=== PATIENT | male | born 1930 | race Caucasian/White ===

== ENCOUNTER → 2016-07-13 | Outpatient (CLI) | payer MEDICARE ==
[2014-04-02 13:00] VITALS: BP 124/60
[~2016-07-13] MED LIST: ASCO500T PO; CHOL2000 PO; GLUC1TAB71 PO; IOHEXOL 180 MG/ML 10 ML VIAL. ONE; OMEG500C3 PO; methylPREDNISolone ACETATE 40 MG/ML VIAL. ONE; methylPREDNISolone ACETATE 80 MG/ML VIAL. ONE
--- NOTE | 2016-07-14 01:40 | PAIN ---
DATE OF SERVICE: 07/13/2016 DIAGNOSES: Lumbar radiculopathy with lumbar spinal stenosis and lumbar degenerative disk disease. HISTORY OF PRESENT ILLNESS: The patient is an 85-year-old male who returns for followup status post lumbar epidural steroid injection x 2. The patient reports approximately 70% improvement after the last injection, rates his pain as 3 on a scale of 10 today, describes it as aching in the low back and right leg, mostly in the lateral and anterior aspect of the thigh, anterior medial thigh to the lower leg as well. The patient reports no new motor or sensory deficits, but is encouraged by his progress after his last injection as the first injection has only approximately 50% improvement as ____ much more improved. The patient reports no new motor or sensory deficits, no new bowel or bladder incontinence or other complaints. The patient's old chart was reviewed as his current medication regimen and updated. Current review of systems updated today as well. PHYSICAL EXAMINATION: VITAL SIGNS: Today, the patient's blood pressure is 144/77, pulse 81, respirations 18, temperature 98.0 degrees Fahrenheit, height 6 feet 1 inch, weight is 210 pounds. GENERAL: The patient is awake, alert, oriented, appropriate, very pleasant demeanor. HEENT: Shows normocephalic, atraumatic. Extraocular movements are intact, symmetrical. Oral cavity shows mucous membranes are moist and pink. NECK: Shows anterior throat supple. CHEST: Shows breath sounds clear to auscultation bilaterally. HEART: Shows S1 and S2 clear. ABDOMEN: Soft, nontender, nondistended. No palpable organomegaly is noted. No rebound or guarding demonstrated. BACK: Shows spine grossly in midline. Lumbar paraspinous muscle shows some neag-ue-vqfrhykm tenderness, but only diffusely in the low lumbar distribution. Muscle girth is normal and symmetrical. No tenderness over the spinous processes. No tenderness over the sacrum or sacroiliac regions. EXTREMITIES: Lower extremities showed deep tendon reflexes at 1+ in the patellar tendons. Motor exam is strong with 5/5 dorsiflexion, extension, quadriceps and hamstring flexion and equal. Options were discussed with the patient. We will proceed with a third lumbar epidural steroid injection today with fluoroscopic guidance. Risks were again discussed including, but not limited to bleeding, infection, possibility of epidural hematoma, subsequent neurological compromise, dural puncture, headaches, spinal cord and/or nerve damage, side effects of steroid medication and poor results regarding pain control. The patient understands and wishes to proceed. The patient will return to clinic in approximately 2 weeks for followup. He was counseled as to return appointment, activity level and side effects to be aware of. DIAGNOSES: Lumbar radiculopathy with lumbar degenerative disk disease, lumbar spinal stenosis. PROCEDURE: Lumbar epidural steroid injection, translaminar approach at the L4-L5 level using C-arm fluoroscopic guidance under sterile prep and drape using local anesthesia. Medications injected are 120 mg of Depo-Medrol plus 10 mL of preservative-free normal saline and 2 mL of Isovue for contrast. The patient's condition at discharge is stable. The patient tolerated the procedure well, had no complications. URSULA LAWRENCE MD DR: TAMRA/jeanna JOB#: [id number] / [id number]
== END | disposition home or self-care (01) ==
LOC: PNCL 08:58
PROVIDERS: ATTEND Anesthesiology
DX: M51.16 Intervertebral disc disorders with radiculopathy, lumbar region (principal); M48.06 Spinal stenosis, lumbar region
CPT/HCPCS: 62323; J1030; J1040

== ENCOUNTER → 2016-08-25 | Outpatient (CLI) | payer MEDICARE ==
[2014-04-02 13:00] VITALS: BP 124/60
[~2016-08-25] MED LIST changes: -IOHEXOL 180 MG/ML 10 ML VIAL. ONE; +NAPR220T70 PO; +RANI150T2 PO; -methylPREDNISolone ACETATE 40 MG/ML VIAL. ONE; -methylPREDNISolone ACETATE 80 MG/ML VIAL. ONE
[2016-08-25 14:56] LABS: BASO % 1 % (0-3); EOS % 7 % (0-3); HEMATOCRIT 37.1 % (39.0-53.0); HEMOGLOBIN 12.5 g/dL (13.0-17.5); LYMPH # 2.1 x10^3/uL (1.0-4.8); LYMPH % 29 % (24-48); MEAN CORPUSCULAR HEMOGLOBIN 32 pg (25-35); MEAN CORPUSCULAR HGB CONC 34 g/dL (31-37); MEAN CORPUSCULAR VOLUME 94 fL (79-100); MONO % 8 % (0-9); NEUT % 56 % (31-73); PLATELET COUNT 165 x10^3/uL (140-400); RED BLOOD COUNT 3.96 x10^6/uL (4.30-5.70); RED CELL DISTRIBUTION WIDTH 13.7 % (11.5-14.5); WHITE BLOOD COUNT 7.3 x10^3/uL (4.0-11.0)
[2016-08-25 15:44] LABS: ALBUMIN 3.3 g/dL (3.4-5.0); CALCIUM 9.2 mg/dL (8.5-10.1); GFR 70.8; POTASSIUM 4.2 mmol/L (3.5-5.1); TOTAL BILIRUBIN 0.5 mg/dL (0.2-1.0); TOTAL PROTEIN 6.7 g/dL (6.4-8.2)
== END | disposition home or self-care (01) ==
LOC: SURGPAT 13:32
PROVIDERS: ATTEND Neurological Surgery
DX: M48.06 Spinal stenosis, lumbar region (principal); M71.20 Synovial cyst of popliteal space [Baker], unspecified knee
CPT/HCPCS: 36415; 80053; 85027; 87641

== ENCOUNTER 2016-08-28 07:13 | Day surgery (SDC) | payer MEDICARE ==
--- NOTE | 2016-08-26 22:42 | PREOP HP ---
DATE OF SERVICE: 08/28/2016 Henry Velasquez RN dictating for Dr. Alexx Garcia. HISTORY OF PRESENT ILLNESS: The patient is a pleasant 86-year-old man, who is having difficulty with right lateral thigh and leg pain. The problem started about 2 years ago and began to become more severe over the last 6 months. He rates his pain as a 6-7/10 now. Walking, turning, or twisting makes the problem worse. He gets relief by sitting or lying down. He has had epidural steroid injections, which he said helped him. Chiropractic treatment was no help. He feels that there may be some weakness in his right foot. PAST MEDICAL HISTORY: Cancer. PAST SURGICAL HISTORY: Tonsil surgery in 1969, hemorrhoidectomy in 1989, and wrist surgery x 2 in 1999. FAMILY HISTORY: Noncontributory. SOCIAL HISTORY: Retired. . Former smoker. Drinks alcohol 1-2 times per week. ALLERGIES: No known drug allergies. CURRENT MEDICATIONS: Vitamin C, vitamin D, fish oil, Aleve, Osteo Bi-Flex Joint Shield, and ranitidine. REVIEW OF SYSTEMS: A 12-point review of systems was obtained and is noncontributory except that mentioned above. PHYSICAL EXAMINATION: NEUROSURGERY EXAMINATION: GENERAL APPEARANCE: Alert, pleasant, in no acute distress. HEAD: Normocephalic and atraumatic. SKIN: Warm and dry. MUSCULOSKELETAL: Lumbar paraspinal muscle bulk is normal, restricted range of motion of lumbar spine, cufd-fs-[id number] tenderness of lower lumbar spine with palpation, normal range of motion of the upper extremities bilaterally. EXTREMITIES: No clubbing, cyanosis, or edema. NEUROLOGIC: Alert and oriented x 3, normal recent and remote memory, strength 5/5 in bilateral lower extremities except for a 4/5 strength in right foot dorsiflexion and right EHL, sensory was intact to light touch in bilateral lower extremities, reflexes were present and symmetric in the lower extremities bilaterally, negative straight leg raising bilaterally, normal gait. IMAGING: I reviewed a lumbar MRI scan. On that study, there is a large synovial cyst present and hypertrophic facet at L4-L5 on the right. This results in severe spinal stenosis at that level. There is also grade 1 anterolisthesis at this level. ASSESSMENT/PLAN: I believe the stenosis and synovial cyst are the primary problem which resulted in the patient's radicular pain. My recommendation is that he undergo lumbar microsurgery to remove this. He does have dorsiflexion weakness on the right associated with this. I discussed with him the surgery and risks. He understands. He would like to go ahead. We will make the arrangements. ALEXX GARCIA MD DR: JANINA/jeanna JOB#: [id number] / [id number] XIN
[~2016-08-28] VITALS: Ht 177.8 cm; Wt 98.9 kg
[~2016-08-28 07:13] MED LIST changes: +BACITRACIN 50,000 UNIT in IV NORMAL SALINE 1000ML BAG 1,000 ML IRR ONE; +BUPIVAC MPF-EPI 0.5%-1:200000 30 ML VIAL. ONE; +CEFAZOLIN 2GM PREMIX 50 ML IV PRN; +FENTANYL PF 100 MCG/2 ML VIAL. IV PRN; +GELATIN SPONGE SIZE 100. ONE; +HYDROMORPHONE 2 MG/ML VIAL. IV PRN; +IV RINGERS,LACTATED 1000ML 1,000 ML IV SCH; +KETOROLAC 60 MG/2 ML SYRINGE FOR OR. ONE; +LIDOCAINE 1% 1 ML SYRINGE. ID PRN; +MORPHINE SULFATE 2 MG/ML DISP.SYRIN. IV PRN; +ONDANSETRON PF 4 MG/2 ML VIAL. IV PRN; +PROCHLORPERAZINE 10 MG/2 ML VIAL. IV PRN; +THROMBIN 20,000 UNIT SPRAY.SYRN KIT TP ONE
[2016-08-28] MEDS ORDERED: ONDANSETRON PF 4 MG/2 ML VIAL. ONE (08:31)
[2016-08-28] MEDS ORDERED: FENTANYL PF 250 MCG/5 ML VIAL. ONE (08:31)
[2016-08-28] MEDS ORDERED: DESFLURANE > 120 MINUTES IH ONE (08:31)
[2016-08-28] MEDS ORDERED: PROPOFOL 50 ML IV ONE (08:31)
[2016-08-28] MEDS ORDERED: PROPOFOL 20 ML IV ONE (08:31)
[2016-08-28] MEDS ORDERED: LIDOCAINE 2% 100 MG/5 ML DISP.SYRIN. ONE (08:31)
[2016-08-28] MEDS ORDERED: REMIFENTANIL 2 MG VIAL. IV ONE (08:31)
[2016-08-28] MEDS ORDERED: DEXAMETHASONE SOD PHOS 20 MG/5 ML VIAL. ONE (08:31)
[2016-08-28] MEDS ORDERED: ROCURONIUM 50 MG/5 ML VIAL. ONE (08:31)
[2016-08-28] MEDS ORDERED: MIDAZOLAM HCL 2 MG/2 ML VIAL. ONE (08:31)
[2016-08-28] MEDS ORDERED: 0.9 % SODIUM CHLORIDE 50 ML VIAL. IJ ONE (08:32)
[2016-08-28] MEDS ORDERED: MINERAL OIL/PETROLATUM,WHITE OPHTH OINT 3.5GM TUBE. ONE (08:36)
[2016-08-28] MEDS ORDERED: PHENYLEPHRINE 10 MG/ML VIAL. ONE (09:14)
[2016-08-28] MEDS ORDERED: CEFAZOLIN PREMIX 2 GM/50 ML BAG. IV ONE (09:24)
[2016-08-28] MEDS ORDERED: GLYCOPYRROLATE 1 MG/5 ML VIAL. ONE (11:15)
[2016-08-28] MEDS ORDERED: NEOSTIGMINE METHYLSULFATE 5 MG/5 ML SYRINGE. ONE (11:16)
[2016-08-28] MEDS ORDERED: POTASSIUM CL 20MEQ D5-0.45NACL 1,000 ML IV SCH (12:38)
[2016-08-28] MEDS ORDERED: MAG HYDROX/ALUMINUM HYD/SIMETH 30 ML ORAL.SUSP PO PRN (12:45)
[2016-08-28] MEDS ORDERED: DIPHENHYDRAMINE HCL 25 MG CAPSULE PO PRN (12:45)
[2016-08-28] MEDS ORDERED: FENTANYL PF 100 MCG/2 ML VIAL. IV PRN ×2 (12:45)
[2016-08-28] MEDS ORDERED: ONDANSETRON PF 4 MG/2 ML VIAL. IV PRN (12:45)
[2016-08-28] MEDS ORDERED: 0.9 % SODIUM CHLORIDE 10 ML DISP.SYRIN. IV PRN (12:45)
[2016-08-28] MEDS ORDERED: MAGNESIUM HYDROXIDE 2,400 MG/30 ML ORAL.SUSP. PO PRN (12:45)
[2016-08-28] MEDS ORDERED: ACETAMINOPHEN 325 MG TABLET. PO PRN (12:45)
[2016-08-28] MEDS ORDERED: HYDROCODONE/APAP 7.5/325MG TABLET. PO PRN ×3 (12:45→13:45)
[2016-08-28] MEDS ORDERED: DIPHENHYDRAMINE 50 MG/ML VIAL IV PRN (12:45)
[2016-08-28] MEDS ORDERED: CALCIUM CARBONATE 500 MG TAB.CHEW PO PRN (12:45)
[2016-08-28 13:03] VITALS: BP 149/66
--- NOTE | 2016-08-28 14:01 | DISCH ---
DISCHARGE INSTRUCTIONS Condition on Discharge Condition on Discharge: Stable Activity After Discharge Activity Instructions for Disc: Activity as tolerated Bathing Instructions: Shower-keep dressing dry (no direct water pressure. no soaking. ), No Tub Bath until see DrMaddi Lifting Instructions after Dis: No heavy lifting, No pulling or pushing, Do not lift >10 pounds Driving Instructions after Dis: Do not drive (for 1 week) Weight Bearing Status after Di: No restrictions Diet after Discharge Additional Diet Restrictions: resume home diet Wound Incision Care Other wound/incision instructi: May remove dressing in 48 hours if drainage has stopped. Wound Care Equipment: Dressings (change dressing if saturated) Contacting the after DC Call your doctor for: If your condition worsens (Call with any questions/ concerns. ) Follow-Up Follow up with: ADRIANA Figueroa @ 's office in 2 weeks. Call for appt [phone] JESI GARCIA MD Aug 28, 2016 14:01
[2016-08-28] MEDS ORDERED: DOCUSATE SODIUM 100 MG CAPSULE PO SCH (21:00)
--- NOTE | 2016-08-28 23:25 | OP ---
DATE OF SURGERY: 08/28/2016 PREOPERATIVE DIAGNOSES: Synovial cyst, right L4-L5 with severe lumbar spinal stenosis and lumbar radiculopathy. POSTOPERATIVE DIAGNOSIS: Synovial cyst, right L4-L5 with severe lumbar spinal stenosis and lumbar radiculopathy. OPERATION PERFORMED: Microscopic decompression and dissection of synovial cyst with decompression of the dura and exiting root L4 and relief of stenosis at L4-L5, right. The operation was done with EMG monitoring, fluoroscopy, and microscopic dissection. SURGEON: Alexx Garcia M.D. RUG TOUCH UP PAINTER: Mathew Mcfarlane M.D., assisted with the surgery, assisted with the exposure, with the removal of the synovial cyst, with the microscope as well as closure. OPERATIVE INDICATIONS: The patient is a pleasant 86-year-old who developed severe intractable back and right leg pain which failed conservative measures. On imaging studies, he had a large synovial cyst at L4-L5 on the right. I recommended lumbar microsurgery. I spoke with him about the surgery, the risks, technique and the expected postoperative course, and he wished to go ahead. DESCRIPTION OF PROCEDURE: Following general endotracheal anesthesia, the patient was positioned prone on the Steffen table. His lumbar region was prepped and draped in standard fashion. GONZALEZ hose and AV impulse boots were applied for DVT prophylaxis. A microscope was draped. Fluoroscopy was draped and brought into the field. Ancef 2 g was given less than 1 hour prior to initiation of the surgery. Using fluoroscopic guidance, incision was made over the L4-L5 interspace. I dissected down through the skin and subcutaneous tissue and reflected the paraspinal muscles and placed a [place]view micro disc retractor. I brought in the microscope, and the remainder of the surgery was done with the microscope under magnification with microdissection and microscopic technique. I burred down a very generous hemilaminotomy and extended it further superiorly and inferiorly to go above and below the synovial cyst, which was quite large. I then began to remove any residual ligamentum flavum around the synovial cyst to allow me to gain some exposure. The cyst was densely scarred to the underlying dura, and I began inferiorly, superiorly, and medially and gently began to remove bands of scar and developed a plane between the dura and the large synovial cyst. As I worked, I was able to very gently remove the cyst. However, this was a difficult procedure and required a considerable time and microdissection. I did use micro instruments including micro blunt hook and arachnoid knife to help cut away scar, and I gently began to decompress the entire region when the cyst was removed. Then, I trimmed laterally and exposed the dura and the lateral edge. I palpated the disc, which was very firm. I visualized the exiting L5 root, and all were well decompressed. I irrigated copiously with antibiotic solution. I then removed the retractor, obtained hemostasis in the muscle, and I closed the wound in layers with absorbable suture, and the skin was closed with 4-0 subcuticular stitch. The operation went very well. I was quite pleased with the surgery. ALEXX GARCIA MD DR: JANINA/jeanna JOB#: [id number] / [id number] XIN
--- NOTE | 2016-09-01 16:35 | PATHOLOGY ---
PATHOLOGY REPORT * * * * * * * * FINAL DIAGNOSIS: Segments of fibrocartilaginous, fibroadipose, and skeletal muscle tissue and bone, lumbar decompression and synovial cyst: - Degenerative changes of fibrocartilaginous tissue. COMMENT: There is no evidence of an acute inflammatory process or malignancy. (JPM:; d/t: 09/01/16) REPORT ELECTRONICALLY SIGNED BY: Saqib Zepeda M.D. DATE/TIME: 09/01/2016 16:35 * * * * * * * * GROSS PATHOLOGY: Received in formalin labeled "Prashanth Barber, lumbar decompression and synovial cyst" are multiple segments of cooper, rubbery, and gritty tissue admixed with bone. The specimen measures 5.2 x 5.0 x 1.4 cm in aggregate dimensions. The tissue is submitted representatively in cassette A1, following decalcification. (CAA; 08/31/2016) INITIAL CPT CODE(S): A; 32406, 86571 Professional services performed by [email or web address] [address] Technical services performed by [facility] at [address] [place] [address], [facility] [address] [address]. SPECIMEN(S) RECEIVED: A.Lumbar decompression and synovial cyst CLINICAL HISTORY: Lumbar stenosis, synovial cyst PATIENT: PRASHANTH BARBER /AGE: 107/22/1930 (Age: 86) PATIENT #: [id number] ALT CASE #: SPECIMEN COLLECTION DATE: 08/28/2016 SPECIMEN RECEIVED DATE: 08/31/2016 [facility] - [address] [place] [address] - PHONE: [phone] * * * END OF REPORT * * *
== END 2016-08-28 14:40 | disposition home or self-care (01) ==
LOC: UNDOADMIN 07:13 → OPSVCIP 07:13 → OPS 07:13 → EDSTATUS 09-07 08:30
PROVIDERS: ATTEND Neurological Surgery
DX: M48.06 Spinal stenosis, lumbar region (principal); M71.38 Other bursal cyst, other site; M54.16 Radiculopathy, lumbar region; K21.9 Gastro-esophageal reflux disease without esophagitis; Z87.39 Personal history of other diseases of the musculoskeletal system and connective tissue; Z98.41 Cataract extraction status, right eye
CPT/HCPCS: 36415; 63267; 76001; 80053; 85027; 87641; 88304; 88311; 97161; G8978; G8979; G8980; J0690; J1100; J1885; J2250; J2405; J2704; J2710; J3010; J3490; J7030; J7120